=== PATIENT | female | born 2000 | race African-American/Black ===

== ENCOUNTER 2019-09-07 08:29 | Emergency (ER) | payer MEDICAID ==
[~2019-09-07] VITALS: Ht 165.1 cm; Wt 118.0 kg
[2019-09-07 09:45] VITALS: BP 116/70
[2019-09-07] MEDS ORDERED: CEFTRIAXONE SODIUM 250 MG/VIAL IM ONE (10:00)
[2019-09-07] MEDS ORDERED: AZITHROMYCIN 500 MG TABLET PO ONE (10:00)
[2019-09-07 10:17] LABS: BASOPHILS % 0.5 % (0.0-2.0); HEMATOCRIT. 37.4 % (36.0-48.0); HEMOGLOBIN. 12.5 g/dL (12.0-16.0); LYMPHOCYTES % 23.9 % (20.0-50.0); MEAN CORPUSCULAR HEMOGLOBIN 27.1 pg (28.0-32.0); MEAN CORPUSCULAR VOLUME 80.8 fL (81.0-99.0); MEAN PLATELET VOLUME 8.1 fl (7.4-10.4); MONOCYTES % 8.9 % (2.0-8.0); NEUTROPHILS % 65.7 % (40.0-76.0); PLATELET 279 x1000/uL (130-400); RED BLOOD CELL COUNT 4.63 mill/uL (4.2-5.4); RED CELL DISTRIBUTION WIDTH 15.2 % (11.6-14.6)
[2019-09-07 10:24] LABS: CHLORIDE 109 mEq/L (98-107)
[2019-09-07 10:36] LABS: B-HCG QUANTITATIVE < 1 mIU/mL (<3)
[2019-09-07 10:53] LABS: CLARITY URINE CLEAR (CLEAR); COLOR URINE ORANGE (YELLOW); KETONES URINE NEGATIVE (NEGATIVE); LEUKOCYTE ESTERASE URINE TRACE (NEGATIVE); NITRITE URINE NEGATIVE (NEGATIVE); OCCULT BLOOD URINE 3+ (NEGATIVE); PROTEIN URINE NEGATIVE (NEGATIVE); SPECIFIC GRAVITY URINE 1.016 (1.005-1.030); UROBILINOGEN URINE 0.2 E.U./dL (0.2-1.0)
[2019-09-10 04:07] LABS: NEISSERIA GONORRHOEAE NAA Negative (Negative)
== END 2019-09-07 11:24 | disposition home or self-care (01) ==
LOC: ER 08:29
DX: N93.8 Other specified abnormal uterine and vaginal bleeding (principal); A64 Unspecified sexually transmitted disease
CPT/HCPCS: 36415; 80053; 81003; 81025; 84702; 85025; 86850; 86900; 86901; 87491; 87591; 96372; 99283; J0696

== ENCOUNTER 2021-01-02 04:05 | Emergency (ER) | payer MEDICAID ==
[~2021-01-02] VITALS: Ht 167.6 cm; Wt 92.0 kg
[2021-01-02] MEDS ORDERED: ONDANSETRON HCL 4MG/2ML INJ IV STA (04:31)
[2021-01-02] MEDS ORDERED: SODIUM CHLORIDE 0.9% 1,000 ML IV ONE (04:45)
[2021-01-02 05:17] LABS: BASOPHILS % 0.7 % (0.0-2.0); EOSINOPHILS % 1.5 % (0.0-5.0); HEMOGLOBIN. 11.8 g/dL (12.0-16.0); MEAN CORPUSCULAR HEMOGLOBIN 27.6 pg (28.0-32.0); MEAN CORPUSCULAR VOLUME 81.6 fL (81.0-99.0); MONOCYTES % 12.2 % (2.0-8.0); NEUTROPHILS % 58.6 % (40.0-76.0); PLATELET 282 x1000/uL (130-400); RED BLOOD CELL COUNT 4.29 mill/uL (4.2-5.4); RED CELL DISTRIBUTION WIDTH 14.6 % (11.6-14.6)
[2021-01-02 05:28] LABS: CHLORIDE 108 mEq/L (98-107)
[2021-01-02 05:39] LABS: HCG SCREEN NEGATIVE
[2021-01-02 05:43] LABS: PROTHROMBIN TIME 10.9 sec (9.6-11.0)
[2021-01-02] MEDS ORDERED: ACETAMINOPHEN WITH CODEINE 300/30MG TABLET PO ONE (06:30)
[2021-01-02 07:34] LABS: CLARITY URINE CLOUDY (CLEAR); COLOR URINE YELLOW (YELLOW); KETONES URINE NEGATIVE (NEGATIVE); LEUKOCYTE ESTERASE URINE 1+ (NEGATIVE); NITRITE URINE NEGATIVE (NEGATIVE); OCCULT BLOOD URINE NEGATIVE (NEGATIVE); PROTEIN URINE NEGATIVE (NEGATIVE); SPECIFIC GRAVITY URINE 1.024 (1.005-1.030)
[2021-01-02] MEDS ORDERED: IBUP-2028 PO (09:11)
[2021-01-02] MEDS ORDERED: ONDA4TAB5 PO (09:11)
[2021-01-02 09:30] VITALS: BP 126/78
[2021-01-02] MEDS ORDERED: NITR-87 PO (09:35)
== END 2021-01-02 09:40 | disposition home or self-care (01) ==
LOC: ER 04:26
DX: R10.2 Pelvic and perineal pain (principal); F12.10 Cannabis abuse, uncomplicated; F17.210 Nicotine dependence, cigarettes, uncomplicated
CPT/HCPCS: 36415; 76830; 76856; 80053; 81003; 81025; 84703; 85025; 85610; 93005; 96361; 96374; 99285; J2405; J7030

== ENCOUNTER 2021-10-04 03:17 | Emergency (ER) | payer MEDICAID ==
[~2021-10-04] VITALS: Ht 167.6 cm; Wt 85.0 kg
[~2021-10-04 03:17] MED LIST: IBUP-2028 PO; NITR-87 PO; ONDA4TAB5 PO
[2021-10-04] MEDS ORDERED: ONDANSETRON 4MG ODT PO ONE (04:15)
[2021-10-04] MEDS ORDERED: KETOROLAC 60MG/2ML VIAL IM ONE (04:15)
[2021-10-04] MEDS ORDERED: HYDROCODONE/ACETAMINOPHEN 5/325MG TABLET PO ONE (04:15)
[2021-10-04 05:39] LABS: CHLORIDE 106 mEq/L (98-107)
[2021-10-04 05:55] VITALS: BP 112/72
[2021-10-04] MEDS ORDERED: HYDR-4001 MT (05:58)
[2021-10-04] MEDS ORDERED: AMOX-424 MT (05:58)
== END 2021-10-04 06:47 | disposition home or self-care (01) ==
LOC: ER 03:17
DX: K04.7 Periapical abscess without sinus (principal)
CPT/HCPCS: 36415; 80053; 80307; 96372; 99283; J1885; Q0162